=== PATIENT | female | born 1985 | race African-American/Black ===

== ENCOUNTER 2017-01-19 07:53 | Emergency (ER) | payer SELFPAY ==
[2017-01-19 09:46] LABS: APPEARANCE,URINE SLIGHTLY-CLOUDY; BILIRUBIN,URINE NEGATIVE (NEGATIVE); GLUCOSE, URINE NEGATIVE (NEGATIVE); KETONES,URINE NEGATIVE (NEGATIVE); LEUKOCYTE ESTERASE,URINE NEGATIVE (NEGATIVE); NITRITE,URINE NEGATIVE (NEGATIVE); PROTEIN,URINE NEGATIVE (NEGATIVE); URINE SPECIFIC GRAVITY 1.023; UROBILINOGEN,URINE NEGATIVE mg/dL (<2.0)
[2017-01-19] MEDS ORDERED: CEFTRIAXONE INJ 250 MG VIAL IM ONE (09:54)
[2017-01-19] MEDS ORDERED: AZITHROMYCIN 250 MG TABLET PO ONE (09:54)
[2017-01-19] MEDS ORDERED: LIDOCAINE 1% INJ-PF (10 MG/ML) 30 ML SDV INFIL ONE (09:54)
[2017-01-19] MEDS ORDERED: METRONIDAZOLE 500 MG TABLET PO ONE (10:01)
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
[2017-01-19 10:39] VITALS: BP 107/79
[2017-01-19 10:41] LABS: ADD HIVPANEL? NO; HIV (1 AND 2) ANTIBODY NEGATIVE (NEGATIVE)
[2017-01-19 11:24] LABS: CHLAM PCR NOT DETECTED (NOT DETECT)
== END 2017-01-19 10:39 | disposition home or self-care (01) ==
LOC: ER 07:53
DX: T76.21XA Adult sexual abuse, suspected, initial encounter (principal); R10.2 Pelvic and perineal pain; N89.8 Other specified noninflammatory disorders of vagina; F17.210 Nicotine dependence, cigarettes, uncomplicated; Z98.51 Tubal ligation status; Z88.0 Allergy status to penicillin
CPT/HCPCS: 99283; 96372; 36415; 87210; 81025; 86592; 81001; 86701; 87491; 87591; J3490; J0696